=== PATIENT | female | born 1955 | race Caucasian/White ===

== ENCOUNTER → 2016-07-21 | Outpatient (CLI) | payer BC ==
[~2016-07-21] MED LIST: ERGO500037 PO; METO50TA7 PO; MISCCAP80 PO; OXYC1TAB3 PO; VITACAP26 PO
--- NOTE | 2016-07-21 13:56 | MAMMOGRAPHY REPORT ---
BILATERAL DIGITAL SCREENING MAMMOGRAM WITH CAD: 07/21/2016 CLINICAL HISTORY: Routine screening. Patient has no complaints. TECHNIQUE: Current study was also evaluated with a Computer Aided Detection (CAD) system. Bilatera l CC and MLO views were obtained. COMPARISON: Comparison is made to exams dated: 07/18/2015 mammogram, 07/17/2014 mammogram, 07/09/2013 m ammogram, 06/30/2012 mammogram, 06/25/2011 mammogram, and 06/02/2010 mammogram - [facility] enter. BREAST COMPOSITION: There are scattered areas of fibroglandular density in both breasts. FINDINGS: No suspicious masses, calcifications, or areas of architectural distortion are noted in e ither breast. There has been no significant interval change compared to prior exams. IMPRESSION: ACR BI-RADS CATEGORY 1: NEGATIVE There is no mammographic evidence of malignancy. A 1 year screening mammogram is recommended. The p atient will receive written notification of the results. Approximately 10% of breast cancers are not detected with mammography. A negative mammographic repor t should not delay biopsy if a clinically suggestive mass is present. Pat Camarena M.D. /:07/21/2016 09:24:31 Pumper Hand: Dulce HERRERA(Piedad)(M), [facility] letter sent: Normal 1/2 BI-RADS Code: ACR BI-RADS Category 1: Negative
== END | disposition home or self-care (01) ==
LOC: C.MAMM 08:26
PROVIDERS: ATTEND Obstetrics & Gynecology
DX: Z12.31 Encounter for screening mammogram for malignant neoplasm of breast (principal)

== ENCOUNTER → 2016-12-13 | Outpatient (CLI) | payer BC ==
--- NOTE | 2016-12-13 11:10 | DIAGNOSTIC IMAGING REPORT ---
SOFT TISS HEAD/NECK-THYROID CLINICAL HISTORY: 61 years-old Female presenting with ABN THYROID EXAM. TECHNIQUE: Real-time grayscale and color Doppler ultrasound imaging of the thyroid and base of the neck was performed. COMPARISON: None. FINDINGS: Right lobe: Heterogeneous in echotexture and enlarged. The right lobe of the thyroid measures 3.0 x 8.1 x 2.1 cm. Multiple nodules index below: 1) upper pole homogeneously isoechoic well-defined wider than tall nodule measuring 2.6 x 2.0 x 2.8 cm (low suspicion) 2) lower pole homogeneously isoechoic well-defined nodule measuring 3.1 x 2.6 x 3.4 cm (low suspicion) 3) upper pole heterogeneously hypoechoic nodule with foci of hyperechogenicity suggesting calcifications. This nodule does not have well-defined margins and measures 1.6 x 1.2 x 1.0 cm (high suspicion) Left lobe: Normal echogenicity and echotexture. The left lobe of the thyroid measures 1.7 x 5.3 x 1.4 cm. Interpolar hypoechoic nodule measuring 1.5 x 1.2 x 1.2 cm, which demonstrates peripheral hyperechogenic foci consistent with calcification and a partially well-defined, partially indistinct margin (intermediate suspicion). No parenchymal hyperemia. Isthmus: The isthmus measures 3 mm in thickness. No nodules. IMPRESSION: 1. Upper pole hypoechoic nodule in the right thyroid lobe has a high suspicion pattern and fine-needle aspiration is recommended. 2. Interpolar hypoechoic nodule in the left thyroid lobe has an intermediate suspicion pattern and based on size, fine-needle aspiration is recommended. Electronically signed by: Fco Dickey M.D. 12/13/2016 11:09 AM Dictated Date/Time: 12/13/2016 11:02 AM
== END | disposition home or self-care (01) ==
LOC: C.ULTR 10:06
PROVIDERS: ATTEND Internal Medicine
DX: E04.2 Nontoxic multinodular goiter (principal)

== ENCOUNTER → 2016-12-21 | Outpatient (CLI) | payer BC ==
--- NOTE | 2016-12-21 14:06 | DIAGNOSTIC IMAGING REPORT ---
ULTRASOUND GUIDED FINE NEEDLE ASPIRATION OF BILATERAL THYROID NODULES CLINICAL HISTORY: Thyroid nodules. COMPARISON STUDY: Thyroid ultrasound December 13, 2016. PROCEDURE: Sonography of the thyroid gland again demonstrated multiple thyroid nodules, including the 1.6 cm hypoechoic nodule within the upper pole of the right lobe and the peripheral calcified 1.5 cm nodule within the midpole of the left lobe. These 2 nodules were targeted for fine needle aspiration. The procedure, risks and benefits were discussed with the patient who agreed to the procedure. The procedure was performed by Dr. Polk following a timeout. Skin was prepped and draped in sterile fashion and local anesthesia was achieved with 1% lidocaine. 2 25-gauge fine needle aspirations of the right lobe nodule were performed. The samples were deemed preliminarily adequate by pathology. Two 25-gauge fine needle aspirations of the left lobe nodule were then obtained. The samples were possible inadequate and therefore 3 additional passes for a total 5 passes were performed within the left lobe nodule. No additional passes were performed. The patient tolerated the procedure well and no immediate complications were evident. IMPRESSION: Ultrasound guided fine needle aspiration of bilateral thyroid nodules. Electronically signed by: Forrest Polk M.D. 12/21/2016 2:05 PM Dictated Date/Time: 12/21/2016 2:01 PM
== END | disposition home or self-care (01) ==
LOC: C.ULTR 12:28
PROVIDERS: ATTEND Internal Medicine
DX: E04.2 Nontoxic multinodular goiter (principal); E07.89 Other specified disorders of thyroid

== ENCOUNTER 2017-01-12 07:27 | Inpatient (IN) | payer BC ==
[2017-01-10 08:27] VITALS: BMI 38.0
--- NOTE | 2017-01-10 08:48 | PAT Medication Instructions ---
Service Date Jan 10, 2017. Current Home Medication List Ergocalciferol (Vitamin D 12582 Unit), 50,000 UNIT PO TUESDAY Probiotic Product (Probiotic), 1 CAP PO QAM Vitamins C & E (Vitamin C), 1 CAP PO QAM Medication Instructions For Your Scheduled Surgery - Hold the following medications the morning of surgery: Probiotic Product (Probiotic), 1 CAP PO QAM Vitamins C & E (Vitamin C), 1 CAP PO QAM Ergocalciferol (Vitamin D 04272 Unit), 50,000 UNIT PO TUESDAY If you have any questions please call us at [phone] or [phone] or [phone]
[2017-01-12] VITALS (8 sets, daily range): BP systolic 130–166; BP diastolic 63–80; PULSE 59–90; TEMP 36.3–37.1; O2SAT 94–99; Ht 157.5 cm; Wt 95.4 kg
[~2017-01-12] VITALS: Ht 157.5 cm; Wt 95.4 kg
[~2017-01-12 07:27] MED LIST changes: +CEFAZOLIN 2000 MG/60 ML D5W IV SCH; +LACTATED RINGER'S 1000ML 1,000 ML IV SCH; -METO50TA7 PO; -OXYC1TAB3 PO
[2017-01-12] MEDS ORDERED: METO50TA7 PO (08:01)
--- NOTE | 2017-01-12 09:13 | History & Physical Bridge Note ---
H&P Re-Evaluation Bridge Note: I have examined the patient, reviewed the History & Physical and in the interval since the performance of the History & Physical I have noted the following changes of clinical significance: No changes noted
[2017-01-12] MEDS ORDERED: THROMBIN 5000 UNITS KIT ONE (09:22)
[2017-01-12] MEDS ORDERED: LIDOCAINE/EPINEPHRINE 1% 20 ML VIAL ONE (09:22)
[2017-01-12] MEDS ORDERED: BACITRACIN OINT 15 GM TUBE ONE (09:23)
[2017-01-12] MEDS ORDERED: MIDAZOLAM HCL 1 MG/ML 2ML VIAL ONE (09:26)
[2017-01-12] MEDS ORDERED: FENTANYL CITRATE INJ 50 MCG/1 ML 2 ML VIAL ONE (09:26)
[2017-01-12] MEDS ORDERED: SUCCINYLCHOLINE CHLORIDE 20 MG/ML 10 ML VIAL IV ONE (09:55)
[2017-01-12] MEDS ORDERED: DEXAMETHASONE SOD INJ 4 MG/ML VIAL ONE (09:55)
[2017-01-12] MEDS ORDERED: ONDANSETRON INJ 2 MG/ML 2 ML VIAL ONE (09:55)
[2017-01-12] MEDS ORDERED: HYDROmorphone INJ 2 MG/ML SYR/VIAL ONE (09:55)
[2017-01-12] MEDS ORDERED: PROPOFOL IV EMULSION 10 MG/ML 20 ML VIAL IV ONE ×2 (09:55→11:39)
[2017-01-12] MEDS ORDERED: HYDROmorphone INJ 1 MG/ML SYR IV PRN (10:30)
[2017-01-12] MEDS ORDERED: ATROPINE SULFATE 0.1 MG/ML 5ML SYR IV PRN (10:30)
[2017-01-12] MEDS ORDERED: FENTANYL CITRATE INJ 50 MCG/1 ML 2 ML VIAL IV PRN (10:30)
[2017-01-12] MEDS ORDERED: MEPERIDINE HCL 25 MG/ML CARP IV PRN (10:30)
[2017-01-12] MEDS ORDERED: ONDANSETRON INJ 2 MG/ML 2 ML VIAL IV PRN ×2 (10:30→13:15)
[2017-01-12] MEDS ORDERED: LABETALOL HCL IV 5 MG/ML 20ML IV PRN (10:30)
[2017-01-12] MEDS ORDERED: EpHEDrine SULFATE INJ 50 MG/ML AMP IV PRN (10:30)
[2017-01-12] MEDS ORDERED: EpHEDrine SULFATE 50MG/5ML SYR ONE (12:36)
[2017-01-12] MEDS ORDERED: LIDOCAINE 4% INH SOLN 4 ML BTL ONE (12:38)
[2017-01-12] MEDS ORDERED: OXYMETAZOLINE HCL 0.05% NA SPR 15 ML BTL ONE (12:39)
[2017-01-12] MEDS ORDERED: SURGICEL ABSORB HEMOSTAT 2IN X 14IN TOP ONE (12:49)
[2017-01-12] MEDS ORDERED: BACITRACIN OINT 15 GM TUBE EXT ONE (12:49)
--- NOTE | 2017-01-12 13:05 | [facility] Operative Report ---
Operative Report Operative Date Jan 12, 2017. Pre-Operative Diagnosis multinodular goiter, suspicious left thyroid nodule on FNA Post-Operative Diagnosis same + substernal goiter Procedure(s) Performed Total Thyroidectomy (including substernal goiter) Surgeon Dr. Ck Friedman Tail Edger Surgeon(s) Juanita Berger PA-C Estimated Blood Loss 150ML Findings 1. VERY LARGE RIGHT SUBSTERNAL GOITER WITH NUMEROUS SOFT NODULES 2. SEVERE TRACHEAL DEVIATION TO THE LEFT 3. HARD ~1.5 CM LEFT THYROID NODULE IN OVERALL SMALL THYROID LOBE ON THAT SIDE Specimens B. Left Thyroid Lobe -double stitch peña superior pole -single stitch peña inferior pole I attest to the content of the Intraoperative Record and any orders documented therein. Any exceptions are noted below.
--- NOTE | 2017-01-12 13:12 | Discharge Instructions ---
Discharge Instructions Date of Service Jan 12, 2017. Admission Reason for Admission: MULTINODULAR GOITER, SUSPICIOUS LEFT THYROID NODULE ON FNA Discharge Discharge Diagnosis / Problem: SAME PLUS SUBSTERNAL GOITER ON RIGHT Discharge Goals Goal(s): Therapeutic intervention Activity Recommendations Activity Limitations: as noted below 1. LIGHT ACTIVITY FOR 2 WEEKS 2. NO DRIVING WHILE ON NORCO . Current Hospital Diet Patient's current hospital diet: Discharge Diet Recommended Diet: Regular Diet Procedures Procedures Performed: Total Thyroidectomy (including substernal goiter) Pending Studies Studies pending at discharge: no Medical Emergencies . Who to Call and When: Medical Emergencies: If at any time you feel your situation is an emergency, please call 911 immediately. . Non-Emergent Contact Non-Emergency issues call your: Surgeon . . "Provider Documentation" section prepared by Ck Friedman. . VTE Core Measure Inpt VTE Proph given/why not?: SCD's
[2017-01-12] MEDS ORDERED: ACETAMINOPHEN 325 MG TAB PO PRN (13:15)
[2017-01-12] MEDS ORDERED: HYDROCODONE/ACETAMOPHEN 5/325MG TAB PO PRN (13:15)
[2017-01-12] MEDS ORDERED: MoRPHine SULFATE 2 MG/ML CARP IV PRN (13:15)
--- NOTE | 2017-01-12 13:57 | OPERATIVE REPORT ---
DATE OF OPERATION: 01/12/2017 PREOPERATIVE DIAGNOSES: 1. Multinodular goiter. 2. Suspicious left thyroid nodule on fine needle aspiration biopsy. POSTOPERATIVE DIAGNOSES: Same with the addition of right substernal goiter. PROCEDURE: Total thyroidectomy. SURGEON: Ck Friedman MD ANESTHESIA: General endotracheal with nerve integrity monitor endotracheal tube. RETAIL M[employer]GAGE BANKER: Juanita Berger PA-C ESTIMATED BLOOD LOSS: 150 mL. FINDINGS: 1. Large right substernal goiter with multiple soft compressible nodules. 2. Severe tracheal deviation to the left. 3. Approximately 1.5 cm very hard left thyroid nodule in an overall very small left thyroid lobe. SPECIMENS: Right and left thyroid lobe sent separately for permanent pathologic assessment. DRAINS: None. COMPLICATIONS: None. INDICATIONS FOR THE PROCEDURE: The patient is a 61-year-old female with a right greater than left, multinodular goiter for which she had several suspicious nodules by ultrasound criteria that were biopsied. The biopsy on the right was benign, but a biopsy on the left had findings suspicious for thyroid malignancy and possibly medullary thyroid carcinoma. The patient had a normal calcitonin level. The patient has no family history of MEN syndrome. After careful discussion with the patient including her options, she decided to undergo total thyroidectomy upon my recommendation. She presents for the above-mentioned procedure on an inpatient elective basis. DESCRIPTION OF PROCEDURE: After informed consent had been obtained from the patient, the patient was wheeled to the operating room and placed on the operating table in supine position. Monitors were placed. After induction of general endotracheal anesthesia with a size 7 nerve integrity monitor endotracheal tube the patient's head and neck were gently extended and a marking pen was used to outline the planned 7 cm incision in a natural skin crease 2 fingerbreadths above the level of the clavicles. A total of 3 mL of 1% lidocaine with 1:100,000 epinephrine was used to inject the skin and subcutaneous tissues overlying the planned incision site. The skin in the neck and chest were then prepped and draped in the usual sterile fashion. A #15 scalpel was then used to make an incision through the skin, subcutaneous tissue, and platysma. Subplatysmal flaps were raised superiorly to the level of thyroid notch and inferiorly to the level of clavicles. The median raphe of the strap muscles was divided using Bovie electrocautery. Of note, the median raphe was deviated to the left hand side. The strap muscles were retracted laterally and the thyroid gland was exposed. Because of the enormity of the right side, the decision was made to divide the strap muscles transversely using a Harmonic scalpel. Dissection was first carried on the right hand side. The thyroid gland was massive on this side and had significant substernal extension. The middle thyroid vein as well as superior and inferior thyroid vascular pedicles were divided using Harmonic scalpel adjacent to the thyroid capsule. Dissection was carried lateral to medial initially. The gland was hypervascular and there were multiple blood vessels that had to be bipolared or divided using a Harmonic scalpel. There was a significant substernal extension of the right thyroid lobe which was dissected using blunt and sharp dissections. This extended fairly deeply into the mediastinum. Once this was delivered, the decision was made to divide the thyroid gland at the isthmus using a Harmonic scalpel due to the enormity of the right side. Orienting sutures were placed on the right thyroid lobe which was sent off for permanent pathological assessment. Care was taken to identify and preserve the right recurrent laryngeal nerve as well as superior and inferior parathyroid candidates. Identification of all of the structures was difficult due to the distorted anatomy. The left thyroid lobe was then addressed. On this side, the gland was quite small. There was a very hard firm, approximately 1.5 cm, mainly inferior nodule that was identified and palpated. The middle thyroid vein was divided using a Harmonic scalpel adjacent to the thyroid capsule. The superior and inferior thyroid vascular pedicles were also divided adjacent to the thyroid capsule using a Harmonic scalpel. Dissection was carried lateral to medial with care to identify and preserve the left recurrent laryngeal nerve as well as superior and inferior parathyroid candidates. These were easier to identify on this side. Orienting sutures were then placed in the left thyroid lobe which was sent off for permanent pathologic specimen. Grossly, there were no abnormal appearing lymph nodes. The wound was then copiously irrigated and suctioned. Bipolar cautery was used to achieve adequate hemostasis. Hemostasis was confirmed with Valsalva maneuver. Small pieces of Surgicel followed by topical spray thrombin were placed in the bilateral tracheoesophageal grooves for added hemostatic effect. The divided strap muscles were then reapproximated using several simple interrupted 3-0 Vicryl sutures. The strap muscles were then reapproximated in the midline using a simple running interlocked 3-0 Vicryl suture. The platysma was then closed with several deep 4-0 Monocryl sutures. The skin was then closed with a simple running subcuticular 5-0 Monocryl suture. The incision was cleansed and dried. Dermabond was applied to the incision. This marked the end of the case. The patient tolerated the procedure well and there were no apparent complications. The patient was extubated and transferred to the recovery room in stable condition. I attest to the content of the Intraoperative Record and any orders documented therein. Any exception s are noted below.
--- NOTE | 2017-01-12 14:32 | Anesthesiology Progress Note ---
Anesthesia Post Op Note Date & Time Jan 12, 2017 at 14:32 Vital Signs Pain Intensity: 0 Vital Signs Past 12 Hours Date Time Temp Pulse Resp B/P (MAP) Pulse Ox O2 Delivery O2 Flow Rate FiO2 01/12/17 14:20 72 13 116/68 97 Nasal Cannula 2 01/12/17 14:10 72 12 125/62 96 Nasal Cannula 2 01/12/17 14:00 77 12 135/68 97 Oxymask 10 01/12/17 13:50 79 12 139/68 95 Oxymask 10 01/12/17 13:47 36.3 74 16 127/70 96 Oxymask 10 01/12/17 08:03 37.1 59 18 162/63 (96) 96 Room Air Notes Mental Status: alert / awake / arousable, participated in evaluation Pt Amnestic to Procedure: Yes Nausea / Vomiting: adequately controlled Pain: adequately controlled Airway Patency, RR, SpO2: stable & adequate BP & HR: stable & adequate Hydration State: stable & adequate Anesthetic Complications: no major complications apparent
[2017-01-12] MEDS: LACTATED RINGER'S 1000ML 1,000 ML IV SCH ×2 (15:30→20:37)
[2017-01-12 19:31] LABS: CALCIUM 8.8 mg/dl (8.5-10.1); MAGNESIUM 2.4 mg/dl (1.8-2.4); PHOSPHORUS 3.9 mg/dl (2.5-4.9)
[2017-01-13 01:52] LABS: CALCIUM 8.6 mg/dl (8.5-10.1); MAGNESIUM 2.1 mg/dl (1.8-2.4); PHOSPHORUS 3.3 mg/dl (2.5-4.9)
[2017-01-13 03:00] VITALS: BP 142/78; PULSE 87; TEMP 36.7; O2SAT 93
[2017-01-13] MEDS ORDERED: NURSING DECISION MEDICATION ORDER SCH (04:30)
[2017-01-13] MEDS ORDERED: LEVOTHYROXINE 150 MCG TAB PO SCH (06:00)
--- NOTE | 2017-01-13 07:15 | ENT PROGRESS NOTE ---
DATE: 01/13/2017 Patient is postoperative day #1 status post total thyroidectomy for a suspicious left thyroid nodule as well as right greater than left multinodular goiter with a significant right substernal extension. The patient has no specific complaints. She has no hoarseness or dysphagia. She has a mild expected sore throat. She denies any numbness or tingling around her lips, fingers or toes or involuntary muscle spasms or cramping. She is afebrile and her vital signs are stable. Examination shows a normal voice. Her neck incision is clean, dry and intact with Dermabond in place. There is some mild postoperative swelling and perhaps a mild fluid collection, but no expanding hematoma. LABORATORY EXAMINATIONS: Revealed normal calcium 8.8, went to 8.6 this morning. She has labs pending for 7:00 a.m. ASSESSMENT AND PLAN: Postoperative day #1 status post total thyroidectomy. If her 7:00 a.m. labs are normal she will be discharged to home.
[2017-01-13 07:20] VITALS: BP 113/70; PULSE 79; TEMP 37.2; O2SAT 94
[2017-01-13 07:30] VITALS: O2SAT 94
[2017-01-13 07:38] LABS: CALCIUM 8.7 mg/dl (8.5-10.1)
[2017-01-13 07:46] LABS: MAGNESIUM 2.3 mg/dl (1.8-2.4); PHOSPHORUS 3.5 mg/dl (2.5-4.9)
--- NOTE | 2017-01-13 07:54 | DISCHARGE SUMMARY ---
ADMISSION DIAGNOSES: Multinodular goiter and suspicious left thyroid nodule on fine needle aspiration biopsy. DISCHARGE DIAGNOSES: Same with the addition of right substernal goiter. HOSPITAL COURSE: The patient is a 61-year-old female with a right greater than left multinodular goiter with a suspicious left thyroid nodule, fine needle aspiration biopsy suggesting malignancy and possibly medullary thyroid carcinoma. Calcitonin level was normal. The patient underwent total thyroidectomy on 01/12/2017 with intraoperative findings of a massive right and left multinodular goiter with significant substernal component on the right hand side. There was a very firm 1.5 cm left thyroid nodule and then otherwise small thyroid gland on that side. The patient tolerated the procedure well with no complications. Her voice and swallowing were normal postoperatively. Her calcium levels were also normal postoperatively with 3 blood draws. She was discharged to home in stable condition on Lee 5 mg/325 mg one-two tablets p.o. q. 4 hours p.r.n. for pain with 40 tablets given as well as Synthroid 150 mcg one p.o. daily. She is to keep her incision dry for 1 week. She is to keep ice on her neck as much as possible for 1 week. She has a followup appointment on operative day #6. She has a future endocrinology appointment with Dr. Taya Lou. She is to call the office if she develops any numbness or tingling around her left fingers or toes or any involuntary muscle spasms or cramps.
--- NOTE | 2017-01-13 08:07 | Anesthesiology Progress Note ---
Anesthesia Post Op Note Date & Time Jan 13, 2017 at 08:06 Vital Signs Pain Intensity: 2.0 Vital Signs Past 12 Hours Date Time Temp Pulse Resp B/P (MAP) Pulse Ox O2 Delivery O2 Flow Rate FiO2 01/13/17 07:30 94 Room Air 01/13/17 07:20 37.2 79 18 113/70 (84) 94 Room Air 01/13/17 03:00 36.7 87 18 142/78 (99) 93 Room Air 01/12/17 23:40 Room Air 01/12/17 22:50 36.6 84 18 130/75 (93) 95 Room Air Notes Mental Status: alert / awake / arousable, participated in evaluation Pt Amnestic to Procedure: Yes Nausea / Vomiting: adequately controlled Pain: adequately controlled Airway Patency, RR, SpO2: stable & adequate BP & HR: stable & adequate Hydration State: stable & adequate Anesthetic Complications: no major complications apparent
[2017-01-13] MEDS ORDERED: METOPROLOL SUCC 50MG EXT REL TAB PO SCH (09:00)
[2017-01-13 10:04] VITALS: BP 113/70; PULSE 79; TEMP 37.2; O2SAT 94
== END 2017-01-13 10:48 | disposition home or self-care (01) | DRG 627 ==
LOC: C.ACU 07:27 → C.MSN 07:50 → ENRESERV 14:43
PROC: 0GTK0ZZ Resection of Thyroid Gland, Open Approach (ICD-10-PCS; principal; 2017-01-12 09:00)
DX: E04.2 Nontoxic multinodular goiter (principal); E80.4 Gilbert syndrome; H91.90 Unspecified hearing loss, unspecified ear; E78.00 Pure hypercholesterolemia, unspecified; I10 Essential (primary) hypertension; E66.9 Obesity, unspecified; M17.12 Unilateral primary osteoarthritis, left knee; E55.9 Vitamin D deficiency, unspecified; Z68.38 Body mass index [BMI] 38.0-38.9, adult

== ENCOUNTER → 2017-03-02 | Outpatient (CLI) | payer BC ==
[~2017-03-02] MED LIST changes: -CEFAZOLIN 2000 MG/60 ML D5W IV SCH; -LACTATED RINGER'S 1000ML 1,000 ML IV SCH; +METO50TA7 PO; +OPTIRAY 320 IV PRN
--- NOTE | 2017-03-02 15:13 | DIAGNOSTIC IMAGING REPORT ---
ABD/PELVIS IV CONTRAST ONLY CT DOSE: 775.30 mGy.cm HISTORY: Left flank pain R10.32 Abdominal pain, LLQ (left lower quadrant)[id number] TECHNIQUE: Multiaxial CT images of the abdomen and pelvis were performed following the use of intravenous contrast. A dose lowering technique was utilized adhering to the principles of ALARA. COMPARISON STUDY: None. FINDINGS: Lung bases are clear. Mild fatty replacement of the liver. Gallstone the region of the gallbladder neck. Pancreas is uniform. Kidneys negative for hydronephrosis. Nonobstructive bowel pattern. Mild wall thickening of the distal descending colon as well as proximal to mid sigmoid. Several diverticuli are present. No evidence for abscess collection or obstruction. Several small reactive abdominal and pelvic nodes. No significant or bulky adenopathy. Uterus is anteflexed. Bladder is midline. No free fluid within the pelvic cul-de-sac. IMPRESSION: 1. Mild acute diverticulitis of the distal descending colon as well as proximal to mid sigmoid. 2. Mild pericolonic infiltrative change. 3. No evidence for abscess collection or obstruction. 4. Gallstone. 5. Fatty infiltration of liver. The above report was generated using voice recognition software. It may contain grammatical, syntax or spelling errors. Electronically signed by: Ryan Thayer M.D. 03/02/2017 3:12 PM Dictated Date/Time: 03/02/2017 3:10 PM
== END | disposition home or self-care (01) ==
LOC: C.CTS 14:33
PROVIDERS: ATTEND Physician Assistant Medical
DX: R10.32 Left lower quadrant pain (principal)

== ENCOUNTER → 2017-07-22 | Outpatient (CLI) | payer OTHER ==
[~2017-07-22] MED LIST changes: -METO50TA7 PO; +METO50TA8 PO; -OPTIRAY 320 IV PRN
--- NOTE | 2017-07-25 08:09 | MAMMOGRAPHY REPORT ---
BILATERAL DIGITAL SCREENING MAMMOGRAM TOMOSYNTHESIS WITH CAD: 07/22/2017 CLINICAL HISTORY: Routine screening. Patient has no complaints. TECHNIQUE: Breast tomosynthesis in addition to standard 2D mammography was performed. Current study was also evaluated with a Computer Aided Detection (CAD) system. COMPARISON: Comparison is made to exams dated: 07/21/2016 mammogram, 07/18/2015 mammogram, 07/17/2014 m ammogram, 07/09/2013 mammogram, 06/30/2012 mammogram, and 07/02/2011 mammogram - [facility] nter. BREAST COMPOSITION: There are scattered areas of fibroglandular density in both breasts. FINDINGS: No suspicious masses, calcifications, or areas of architectural distortion are noted in ei ther breast. There has been no significant interval change compared to prior exams. Circumscribed be nign-appearing 6 mm mass within the left upper outer quadrant is not significantly changed. Other mi ld bilateral nodularity is also stable. IMPRESSION: ACR BI-RADS CATEGORY 2: BENIGN There is no mammographic evidence of malignancy. A 1 year screening mammogram is recommended. The pa tient will receive written notification of the results. Approximately 10% of breast cancers are not detected with mammography. A negative mammographic report should not delay biopsy if a clinically suggestive mass is present. Pat Camarena M.D. /:07/22/2017 12:38:38 Events And Promotions Assistant: Rizwana HERRERA(Piedad)(Jere)([place]), [facility] letter sent: Normal 1/2 BI-RADS Code: ACR BI-RADS Category 2: Benign
== END ==
LOC: C.MAMM 10:03
PROVIDERS: ATTEND Obstetrics & Gynecology
DX: Z12.31 Encounter for screening mammogram for malignant neoplasm of breast (principal)

== ENCOUNTER → 2017-08-18 | Outpatient (CLI) | payer OTHER | END | disposition home or self-care (01) | LOC: C.MAMM 09:14 | PROVIDERS: ATTEND Internal Medicine | DX: M85.852 Other specified disorders of bone density and structure, left thigh (principal); Z78.0 Asymptomatic menopausal state ==